=== PATIENT | male | born 1990 | race Two or more races ===

== ENCOUNTER 2024-07-25 06:52 | Emergency (ER) | payer SELFPAY ==
[~2024-07-25] VITALS: Ht 162.6 cm; Wt 81.8 kg
[2024-07-25 07:02] VITALS: BP 146/74; TEMP 99.1
--- NOTE | 2024-07-25 07:07 | ED.PDOC ---
Psychiatric HPI Comments 34 year old male DANIELLA presents to the ED with chief complaint of anxiety. EMS reports that the patient and his were at a constitution party yesterday when according to his , the patient consumed a large amount of ETOH along with cocaine and a rhino pill. EMS relays that the patient has not slept at all since last night and is now experiencing anxiety, SOB, and tachycardia, also showing on their EKG. Patient states he was given a pill at the constitution party, but does not know what was in it. Patient denies any N/V, LOC, dizziness, headache, SI, or HI. Time Seen by MD: 07:02 Reviewed Notes: Nurses Notes, Medications, Allergies Information Source: Patient, Emergency Med Personnel Mode of Arrival: EMS Severity of Symptoms: Moderate Timing: Hours Duration: Since onset Prehospital treatment: None Presents with: Anxiety, Alcohol Intoxication Ingestion: Intentional, Drug(s) Ingested (Cocaine, Rhino pill), ETOH Circumstance: Other (Anxiety) Current substance abuse: ETOH, Cocaine Stressors: None History of: None Past Medical History PAST MEDICAL HISTORY: Denies Surgical History: Denies all surgeries Family History Family History: Reviewed,noncontributory to illness Social History Smoker: Non-Smoker Alcohol: Heavy Drugs: Cocaine Lives In: Home Constitutional: denies: chills, diaphoresis, fatigue, fever, malaise, sweats, weakness, others EENTM: denies: blurred vision, double vision, ear bleeding, ear discharge, ear drainage, ear pain, ear ringing, eye pain, eye redness, hearing loss, mouth pain, mouth swelling, nasal discharge, nose bleeding, nose congestion, nose pain, photophobia, tearing, throat pain, throat swelling, voice changes, others Respiratory: reports: shortness of breath; denies: cough, hemoptysis, orthopnea, SOB at rest, SOB with excertion, stridor, wheezing, others Cardiovascular: reports: palpitations; denies: chest pain, dizzy spells, diaphoresis, Dyspnea on exertion, edema, irregular heart beat, left arm pain, lightheadedness, PND, syncope, others Gastrointestinal: denies: abdomen distended, abdominal pain, blood streaked bowels, constipated, diarrhea, dysphagia, difficulty swallowing, hematemesis, melena, nausea, poor appetite, poor fluid intake, rectal bleeding, rectal pain, vomiting, others Genitourinary: denies: burning, dysuria, flank pain, frequency, hematuria, incontinence, penile discharge, penile sore, pain, testicle pain, testicle swelling, urgency, others Neurological: denies: dizziness, fainting, headache, left sided numbness, left sided weakness, numbness, paresthesia, pre-existing deficit, right sided numbness, right sided weakness, seizure, speech problems, tingling, tremors, weakness, others Musculoskeletal: denies: back pain, gout, joint pain, joint swelling, muscle pain, muscle stiffness, neck pain, others Integumetry: denies: bruises, change in color, change in hair/nails, dryness, laceration, lesions, lumps, rash, wounds, others Allergic/Immunocompromised: denies: Difficulty Healing, Frequent Infections, Hives, Itching, others Hematologic/Lymphatic: denies: anemia, blood clots, easy bleeding, easy bruising, swollen glands, others Endocrine: denies: excessive hunger, excessive sweating, excessive thirst, excessive urination, flushing, intolerance to cold, intolerance to heat, unexplained weight gain, unexplained weight loss, others Psychiatric: reports: anxiety, sleepless; denies: bipolar disorder, depression, hopeless, panic disorder, schizophrenia, suicidal, others All Other Systems: Reviewed and Negative Physical Exam General Appearance: Mild Distress, Normal, Other (Mildly anxious, smells of ETOH) HEENT: Normal ENT Inspection, Pharynx Normal, TMs Normal, Other (Pupils 3mm bilaterally) Neck: Full Range of Motion, Non-Tender, Normal, Normal Inspection Respiratory: Chest Non-Tender, Lungs Clear, No Accessory Muscle Use, No Respiratory Distress, Normal Breath Sounds Cardiovascular: No Edema, No JVD, No Murmur, No Gallop, Normal Peripheral Pulses, Tachycardia Breast Exam: Deferred Gastrointestinal: No Organomegaly, Non Tender, No Pulsatile Mass, Normal Bowel Sounds, Soft Genitalia: Deferred Pelvic: Deferred Rectal: Deferred Extremities: No calf tenderness, Normal capillary refill, Normal inspection, Normal range of motion, Non-tender, No pedal edema Musculoskeletal : Apperance: Normal Neurologic: Alert, president and chief executive officer II-XII nml as Tested, No Motor Deficits, Normal Affect, Normal Mood, No Sensory Deficits Cerebellar Function: Normal Reflexes: Normal Skin: Dry, Normal Color, Warm Lymphatic: No Adenopathy EKG EKG : Pulse Rate (adult): 86 [place]: Normal Cardiac Rhythm: NSR Block: None Hypertrophy: None ST: Normal Comments Occasional PVCs Was a procedure done? Was a procedure done?: No Psych Differential Dx Psych. Differential Dx: Anxiety OD Differential Dx: Alcohol Abuse, Anxiety, Panic Disorder, Substance Abuse Suicidal Differential Dx: Alcohol Abuse, Anxiety, Panic Disorder Intoxication Differential Dx: Encephalopathy, Intoxication, Substance Abuse Disorder X-Ray, Labs, Meds, VS Vital Signs Date Time Temp Pulse Resp B/P (MAP) Pulse Ox O2 Delivery O2 Flow Rate FiO2 07/25/24 08:14 93 26 98 07/25/24 07:10 86 07/25/24 07:07 86 07/25/24 07:02 99.1 119 20 146/74 (98) 100 99.1 07/25/24 07:02 20 100 Room Air* 0 21 Lab Test 07/25/24 07:20 Range/Units Sodium Level 140 136-145 mmol/L Potassium Level 3.2 L 3.5-5.1 mmol/L Chloride Level 103 98-107 mmol/L Carbon Dioxide Level 18 L 20-31 mmol/L Anion Gap 19 H 5-15 Blood Urea Nitrogen 6 L 9-23 mg/dL Creatinine 0.85 0.700-1.30 mg/dL Glomerular Filtration Rate Calc 117 >90 mL/min BUN/Creatinine Ratio 7.1 L 10.0-20.0 Serum Glucose 85 74-106 mg/dL Calcium Level 10.1 8.7-10.4 mg/dL Total Bilirubin 0.7 0.2-1.0 mg/dL Aspartate Amino Transferase (AST) 24 13-40 U/L Alanine Aminotransferase (ALT) 28 7-40 U/L Alkaline Phosphatase 79 46-116 U/L Total Protein 8.3 H 5.7-8.2 g/dL Albumin 5.2 H 3.2-4.8 g/dL Plasma/Serum Blood Alcohol 178.9 H <10 mg/dL Current Medications Medications (Trade) Dose Ordered Sig/Walt Route Start Time Stop Time Status Last Admin Sodium Chloride 1,000 ml @ 1,000 mls/hr Q1H ONCE IV 07/25/24 07:15 07/25/24 08:14 DC 07/25/24 08:07 Alprazolam (Xanax Tablet) 0.25 mg ONCE ONCE PO 07/25/24 07:15 07/25/24 07:16 DC 07/25/24 08:06 Time of 1ST Reevaluation: 08:02 Reevaluation 1ST: Improved Time of 2ND Reevaluation: 09:10 Reevaluation 2ND: Improved Patient Education/Counseling: Diagnosis, Treatment, Prognosis, Need For Follow Up Family Education/Counseling: Diagnosis, Treatment, Prognosis, Need For Follow Up, No Family Present Additional Information Previous visits: None The following tests were ordered, and results were reviewed by me: CMP, ETOH, UDS, EKG Additional Information was gathered from interviewing the following independent historians: EMS I reviewed and agreed with the following test results read by other providers: None I discussed treatment and results with medical personnel and: Patient Comprehensive systems review obtained and negative except for what is stated in the HPI. Departure 1 Departure Time of Disposition: 09:10 Impression: Primary Impression: Alcohol intoxication Qualified Codes: F10.920 - Alcohol use, unspecified with intoxication, uncomplicated Disposition: HOME / SELF CARE / HOMELESS Condition: Good Discharged With: Self, Relative (Mother) Critical Care Note Critical Care Time?: No Stability Stability form required: No Heart Score Heart Score: Heart Score Response (Comments) Value History Slightly Suspicious 0 EKG Normal 0 Age <45 0 Risk Factors No known risk factors 0 Troponin Normal limit 0 Total 0 I personally scribed for KELLEY CESPEDES MD ([facility]) on 07/25/24 at 07:07. Electronically submitted by Crow Urbina ([employer] [place]). I personally scribed for KELLEY CESPEDES MD ([facility]) on 07/25/24 at 07:10. Electronically submitted by Crow Urbina ([employer]). KELLEY CESPEDES MD Jul 25, 2024 07:07
--- NOTE | 2024-07-25 07:17 | ECG ---
[facility] Test Date: 2024-07-25 Test Time: 07:07:50 Pat Name: JOSUE FITZPATRICK Department: ED Room: Gender: M Ironer Sock: : 1990 Requested By: KELLEY CESPEDES Order Number: [id number] Reading MD: Chato Barrera Measurements Intervals [place] Rate: 86 P: 78 [place]: 137 QRS: -19 QRSD: 108 T: 19 QT: 372 QTc: 445 Interpretive Statements Sinus rhythm Ventricular premature complex Borderline left axis deviation Electronically Signed On 07-25-2024 20:38:08 PDT by Chato Barrera Please click the below link to view image of tracing.
[2024-07-25] MEDS: ALPRAZolam 0.25 MG TAB PO ONE (08:06)
[2024-07-25] MEDS: SODIUM CHLORIDE 0.9% 1,000 ML IV ONE (08:07)
[2024-07-25 08:14] VITALS: PULSE 93; RESP 26; O2SAT 98
[2024-07-25 08:43] LABS: Alanine Aminotransferase 28 U/L (7-40); Albumin 5.2 g/dL (3.2-4.8); Alkaline Phosphatase 79 U/L (46-116); Anion Gap 19 (5-15); Aspartate Aminotransferase 24 U/L (13-40); BUN/Creatinine Ratio 7.1 (10.0-20.0); Bilirubin, Total 0.7 mg/dL (0.2-1.0); Blood Alcohol 178.9 mg/dL (<10); Blood Urea Nitrogen 6 mg/dL (9-23); Calcium 10.1 mg/dL (8.7-10.4); Carbon Dioxide 18 mmol/L (20-31); Chloride 103 mmol/L (98-107); Glucose 85 mg/dL (74-106); Potassium 3.2 mmol/L (3.5-5.1); Sodium 140 mmol/L (136-145); Total Protein 8.3 g/dL (5.7-8.2)
[2024-07-25 09:33] LABS: Cannabinoid Screen, Urine Pos (NEGATIVE)
[2024-07-25 09:43] LABS: Barbiturate Scree,Urine Neg (NEGATIVE); Opiate Scree,Urine Neg (NEGATIVE)
[2024-07-25 09:44] LABS: Amphetamine Screen, Urine Neg (NEGATIVE); Benzodiazephine Screen, Urine Neg (NEGATIVE); Cocaine Screen, Urine Pos (NEGATIVE); Phencyclidine Screen, Urine Neg (NEGATIVE)
== END 2024-07-25 09:38 | disposition home or self-care (01) ==
LOC: EDBD 06:52 → ER 06:52
DX: F10.129 Alcohol abuse with intoxication, unspecified (principal); F14.90 Cocaine use, unspecified, uncomplicated; Y90.6 Blood alcohol level of 120-199 mg/100 ml
CPT/HCPCS: 36415; 80053; 80307; 80320; 93005; 96360; 99284; J7030